=== PATIENT | male | born 1945 | race African-American/Black ===

== ENCOUNTER → 2021-07-10 | Outpatient (CLI) | payer MEDICARE ==
[~2021-07-10] MED LIST: ASPI325T8 PO; HYDR-2765 PO
== END ==
LOC: LAB 09:47
PROVIDERS: ATTEND Orthopaedic Surgery
DX: Z01.812 Encounter for preprocedural laboratory examination (principal); Z20.822 Contact with and (suspected) exposure to COVID-19
CPT/HCPCS: U0003; U0005

== ENCOUNTER 2021-07-11 09:07 | Day surgery (SDC) | payer MEDICARE ==
[~2021-07-11] VITALS: Ht 172.7 cm; Wt 87.6 kg
[~2021-07-11 09:07] MED LIST changes: -HYDR-2765 PO; +HYDROmorphone 2 MG/ML VIAL IVP PRN; +IV RINGERS,LACTATED 1000ML 1,000 ML IV SCH; +MORPHINE SULFATE 2 MG/ML INJ. IVP PRN; +PROCHLORPERAZINE 10 MG/2 ML VIAL. IVP PRN; +fentaNYL PF VIAL 100 MCG/2 ML VIAL IVP PRN
[2021-07-11] MEDS ORDERED: ROCURONIUM 50 MG/5 ML VIAL. ONE (09:59)
[2021-07-11] MEDS ORDERED: ONDANSETRON PF 4 MG/2 ML VIAL. ONE (09:59)
[2021-07-11] MEDS ORDERED: fentaNYL PF VIAL 100 MCG/2 ML VIAL ONE (09:59)
[2021-07-11] MEDS ORDERED: DEXAMETHASONE SOD PHOS 4 MG/ML VIAL ONE (10:00)
[2021-07-11] MEDS ORDERED: PROPOFOL 10 MG/ML (20ML) VIAL. IV ONE (10:00)
[2021-07-11] MEDS ORDERED: LIDOCAINE 2% PF 5 ML VIAL. ONE (10:00)
[2021-07-11] MEDS ORDERED: HYDR-2765 PO (10:08)
--- NOTE | 2021-07-11 10:10 | DISCH ---
DISCHARGE INSTRUCTIONS Condition on Discharge Condition on Discharge: Stable Activity After Discharge Activity Instructions for Disc: Progressive ambulation Weight Bearing Status after Di: As tolerated Diet after Discharge Diet after Discharge: Regular Wound Incision Care Wound/Incision Care: Ice to area for comfort, Change dressing (May remove dressing in 3 days but keep butterfly strips intact report any drainage or redness) Contacting the [facility] after DC Call your doctor for: Concerns you may have Follow-Up Follow up with: Gorge Villegas 10 to 14 days MAC SINGER MD Jul 11, 2021 10:10
[2021-07-11] MEDS ORDERED: BUPIVACAINE-EPI 0.5%-1:200000 MPF 30 ML VIAL. ONE (10:17)
[2021-07-11] MEDS ORDERED: SEVOFLURANE 31 TO 60 MINUTES. IH ONE (11:05)
[2021-07-11] MEDS ORDERED: GLYCOPYRROLATE 1 MG/5 ML VIAL. ONE (11:11)
[2021-07-11] MEDS ORDERED: NEOSTIGMINE METHYLSULFATE 5 MG/5 ML SYRINGE. ONE (11:11)
--- NOTE | 2021-07-11 11:46 | PDOC4 ---
Operative Note Operative Note Date of surgery: 07/11/2021 Preoperative diagnosis: Painful hardware lateral left hip Postoperative diagnosis: Same Operative procedure: Removal three cannulated screws left hip Surgeon: Brittny Assist: Stef gonzalez Anesthesia: General Estimated blood loss: 10 cc Cultures: Tissue sent from inside of one of the cannulated screws as it appeared somewhat pressurized on removal sent for aerobic anaerobic cultures Complications: None Operative indications: Patient is a 76-year-old male who had previously undergone fixation of a femoral neck fracture by Dr. Trinidad I believe and has had tenderness over the lateral hip recently unresponsive to injections and other nonoperative treatment. We had discussed the prominence of the screws and the possibility of removal to treat his symptoms over the prominent hardware and trochanteric bursa area. We talked about the possibility of continued pain infection nerve or blood vessel damage medical or other anesthetic complications among others all his questions were answered he wishes to proceed with surgical evaluation and treatment Operative text: Patient was identified procedure verified patient placed in the supine position on the operating table. After adequate amounts of general anesthesia were administered the patient was placed in the decubitus position left side up all bony prominences were well-padded and he was stabilized using the Stulberg hip positioner. The left hip was then prepped and draped in standard sterile fashion and after timeout was performed patient procedure identified and verified an incision was made over the lateral aspect of the hip overlying the prominent hardware dissection carried out down to the screws with electrocautery. On removal of the first screw there seemed to be somewhat pressurized tissue coming out of the cannulated area of the screw which was sent off for culture. The screws were removed without further difficulty or bony compromise. Thorough irrigation carried out with normal saline solution closure accomplished with buried Vicryl suture skin closure with Monocryl suture. S terile dressings were applied patient was returned to recovery room in stable condition having tolerated procedure well. Stef gonzalez was present for the procedure assisted in patient positioning prepping draping retraction closure and dressings MAC SINGER MD Jul 11, 2021 11:46
[2021-07-11 11:52] VITALS: BP 123/69
== END 2021-07-11 12:30 | disposition home or self-care (01) ==
LOC: SURG 09:07
PROVIDERS: ATTEND Orthopaedic Surgery
DX: T84.84XA Pain due to internal orthopedic prosthetic devices, implants and grafts, initial encounter (principal); M19.90 Unspecified osteoarthritis, unspecified site; F17.210 Nicotine dependence, cigarettes, uncomplicated; Z98.890 Other specified postprocedural states; Y83.8 Other surgical procedures as the cause of abnormal reaction of the patient, or of later complication, without mention of misadventure at the time of the procedure
CPT/HCPCS: 20680; 87071; 87075; A4364; A4930; A6402; A6457; J0690; J1100; J2405; J2704; J2710; J3010; J3490; A4223; A4452; A6455

== ENCOUNTER → 2021-08-06 | Outpatient (CLI) | payer MEDICARE ==
[2021-07-11 11:52] VITALS: BP 123/69
[~2021-08-06] MED LIST changes: +BUPIVACAINE MPF 0.5% 10 ML VIAL. IJ ONE; +HYDR-2765 PO; -HYDROmorphone 2 MG/ML VIAL IVP PRN; +IOHEXOL 300 MG/ML 50 ML VIAL. INT ART ONE; -IV RINGERS,LACTATED 1000ML 1,000 ML IV SCH; +LIDOCAINE 1% Multi-Dose 20 ML VIAL. INJ ONE; -MORPHINE SULFATE 2 MG/ML INJ. IVP PRN; -PROCHLORPERAZINE 10 MG/2 ML VIAL. IVP PRN; -fentaNYL PF VIAL 100 MCG/2 ML VIAL IVP PRN; +methylPREDNISolone ACETATE 80 MG/ML VIAL. INT ART ONE
--- NOTE | 2021-08-06 15:29 | RAD ---
EXAM: Fluoroscopically guided left hip joint injection INDICATION: Left hip pain COMPARISON: Left hip radiograph 07/21/2021 TECHNIQUE/FINDINGS: The purpose of the procedure and risks and benefits were discussed with the patient. Informed consent was obtained. A timeout was performed. After obtaining consent, the patient was placed supine on the fluoroscopy table with the left hip int ernally rotated. The skin overlying the left hip was marked, sterilized and draped. Superficial and deep soft tissues were anesthetized with 1% lidocaine. Utilizing fluoroscopic guidance, a 22-gauge 3.5" needle was advanced into the joint. Intraarticular position was confirmed with injection of a sm all amount of iodinated contrast. Subsequently, 5 mL of a solution containing the following items wa s instilled into the joint: 1 mL Depo-Medrol (80 mg/mL), 4 mL bupivacaine, and 1 mL 1 percent lidocai ne. At the end of the procedure, the needle was removed. The overlying skin was cleansed and covered with a bandaid. The patient tolerated the procedure well and was free of immediate complications. Total fluoroscopic time: 0.4 minutes. One image acquired. IMPRESSION: Technically successful left hip injection of steroid and anesthetic. Electronically signed by: Shira Bishop MD (08/06/2021 3:27 PM) [id number]
== END | disposition home or self-care (01) ==
LOC: RAD 13:23
PROVIDERS: ATTEND Orthopaedic Surgery
DX: M25.552 Pain in left hip (principal); M19.90 Unspecified osteoarthritis, unspecified site; Z87.891 Personal history of nicotine dependence; Z79.82 Long term (current) use of aspirin; Z79.899 Other long term (current) drug therapy; Z98.890 Other specified postprocedural states
CPT/HCPCS: 20610; 77002